=== PATIENT | female | born 1930 | race Caucasian/White ===

== ENCOUNTER 2019-10-01 04:59 | Day surgery (SDC) | payer OTHER ==
[~2019-10-01 04:59] MED LIST: HORIZANT300 MG PO; KAPSPARGO SPRI100 MG PO; PLAVIX75 MG PO
== END 2019-10-01 17:45 | disposition home or self-care (01) ==
LOC: CIR.AMB 04:59 → ADM 11:15 → CIR.AMB 11:15
DX: T85.111A Breakdown (mechanical) of implanted electronic neurostimulator of peripheral nerve electrode (lead), initial encounter (principal)
CPT/HCPCS: 64585; 64590; C1767